=== PATIENT | male | born 1950 | race Caucasian/White ===

== ENCOUNTER 2024-03-19 06:24 | Day surgery (SDC) | payer MEDICARE ==
[~2024-03-19] VITALS: Ht 180.3 cm; Wt 64.5 kg
[2024-03-19] VITALS (8 sets, daily range): BP systolic 113–159; BP diastolic 71–91; PULSE 60–75; RESP 7–18; TEMP 98.1; O2SAT 92–98
[2024-03-19] MEDS ORDERED: MAGN400C PO (06:59)
[2024-03-19] MEDS ORDERED: LATA2.5D14 EACHEYE (06:59)
[2024-03-19] MEDS ORDERED: OXYB-58 PO (06:59)
[2024-03-19] MEDS ORDERED: FLUT15.815 NAS (06:59)
[2024-03-19] MEDS ORDERED: ATOR20TA66 PO (06:59)
[2024-03-19] MEDS ORDERED: CHOL200042 PO (06:59)
[2024-03-19] MEDS ORDERED: FLO0.4C PO (06:59)
[2024-03-19] MEDS ORDERED: BUPR1FIL56 SL (06:59)
[2024-03-19] MEDS ORDERED: LOSA50TA64 PO (06:59)
[2024-03-19] MEDS ORDERED: TRAZ-251 PO (06:59)
[2024-03-19 07:31] LABS: HEMOGLOBIN 14.4 g/dl (14.0-17.9); MEAN CORPUSCULAR HEMOGLOBIN 31.3 PG (27.0-31.0); MEAN CORPUSCULAR HGB CONC 33.8 g/dL (33.0-36.5); WHITE BLOOD COUNT 4.3 X10'3 (4.5-11.0)
[2024-03-19 07:33] LABS: BASOPHILS % (AUTO) 0.5 % (0-1); EOSINOPHILS # (AUTO) 0.1 X10'3 (0-0.9); EOSINOPHILS % (AUTO) 3.1 % (0-6); HEMATOCRIT 42.4 % (42.0-52.0); LYMPHOCYTES # (AUTO) 1.2 X10'3 (1.1-4.8); LYMPHOCYTES % (AUTO) 27.5 % (21-51); MEAN CORPUSCULAR VOLUME 92.6 FL (78-98); MEAN PLATELET VOLUME 7.5 FL (7.4-10.4); MONOCYTES # (AUTO) 0.4 X10'3 (0-0.9); MONOCYTES % (AUTO) 9.9 % (2-12); NEUTROPHILS # (AUTO) 2.5 X10'3 (1.8-7.7); PLATELET COUNT 170 X10'3 (140-440); RED BLOOD COUNT 4.58 X10'6 (4.70-6.10); RED CELL DISTRIBUTION WIDTH 13.4 % (11.5-14.5)
[2024-03-19] MEDS: normal saline 1,000 ML IV SCH (07:37)
[2024-03-19] MEDS: vancomycin/NS 1 GM in NS 250 ML IV ONE (07:38)
[2024-03-19 07:39] LABS: ALBUMIN 3.5 G/DL (3.4-5.0); ANION GAP 6 (8-16); BLOOD UREA NITROGEN 28 MG/DL (7-18); BUN/CREATININE RATIO 21.2 (10.0-20.0); CALCIUM 8.9 MG/DL (8.5-10.1); CHLORIDE 105 MMOL/L (99-107); CREATININE 1.32 MG/DL (0.60-1.10); GLUCOSE 105 MG/DL (70-104); MAGNESIUM 2.3 MG/DL (1.5-2.4); POTASSIUM 4.2 MMOL/L (3.5-5.1); PROTHROMBIN TIME 10.7 SECONDS (9.0-12.0); SODIUM 140 MMOL/L (135-145); TOTAL CARBON DIOXIDE 29.2 MMOL/L (24-32); eCRCL 44 ML/MIN; eGFR 53 ML/MIN
[2024-03-19] MEDS ORDERED: cefazolin 2gm/D5W 100mL 100 ML IV ONE (08:00)
[2024-03-19] MEDS ORDERED: LIDOcaine 1% W/epiNEPHrine 1:100,000 20ml vial ONE ×2 (08:51→09:50)
[2024-03-19] MEDS ORDERED: fentaNYL/PF 50MCG/1 ML 2ML syringe ONE ×2 (08:51→10:24)
[2024-03-19] MEDS ORDERED: midazolam 1 mg/ML 2ml injection ONE ×4 (08:51→10:25)
[2024-03-19] MEDS ORDERED: vancomycin 1,000mg inj ONE (08:53)
[2024-03-19] MEDS ORDERED: iohexol 350 MG/ML 50ML vial IV ONE (09:42)
[2024-03-19] MEDS ORDERED: normal saline 1000ml 1,000 ML IV SCH (11:35)
[2024-03-19] MEDS ORDERED: HYDROcodone/acetaminophen 5mg/325mg tablet PO PRN (11:35)
[2024-03-19] MEDS: HYDROcodone/acetaminophen 10/325mg tab PO PRN (12:19)
== END 2024-03-19 13:03 | disposition home or self-care (01) ==
LOC: SSTAY O 06:24
PROVIDERS: ATTEND Internal Medicine Cardiovascular Disease
DX: I49.5 Sick sinus syndrome (principal); I25.10 Atherosclerotic heart disease of native coronary artery without angina pectoris; E78.00 Pure hypercholesterolemia, unspecified; Z79.899 Other long term (current) drug therapy; Z98.890 Other specified postprocedural states; Z82.49 Family history of ischemic heart disease and other diseases of the circulatory system
CPT/HCPCS: 33208; 36415; 71045; 80048; 83735; 85025; 85610; 93005; 99152; 99153; A4565; C1785; C1898; J2250; J3010; J3370; J3490; J7030; Q9967; Z7610

== ENCOUNTER 2025-04-29 14:59 | Outpatient (CLI) | payer MEDICARE ==
[~2025-04-29 14:59] MED LIST: ATOR20TA66 PO; BUPR1FIL56 SL; CHOL200042 PO; FLUT15.815 NAS; LATA2.5D7 EACHEYE; LOSA50TA64 PO; MAGN400C PO; OXYB-58 PO; TAMS-55 PO; TRAZ-251 PO
--- NOTE | 2025-04-29 17:57 | RADIOLOGY REPORT ---
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 All CT scans at this facility use dose modulation, iterative reconstruction, and/o r weight based dosing when appropriate to reduce radiation dose to as low as reasonably achievable. COMPARISON: DI CHEST,SINGLE VIEW on DOS: 03/19/24 FINDINGS: LOWER NECK: Unremarkable LYMPH NODES/MEDIASTINUM: Right lower paratracheal lymph node measures 10 mm in short axis CARDIOVASCULAR: Normal cardiac size. No pericardial effusion. No aneurysmal dilatation of the great v essels. Coronary artery calcifications. UPPER ABDOMEN: Distention of the stomach. 1 mm nonobstructive left superior renal caliceal stones. Hy poattenuating lesions of the liver. In the setting of known malignancy, consider nonemergent MRI of t he liver. MUSCULOSKELETAL: No acute fracture or aggressive focal osseous lesion. Multilevel degenerative change of the visualized spine. CHEST WALL: Left anterior chest cardiac device. LUNG PARENCHYMA/PLEURAL SPACE: No pleural effusion or pneumothorax. Centrilobular emphysema in the po sterior aspect of the left upper lobe. Small areas of subpleural fibrosis and subsequent cystic lung change in the posterior basilar segment, right lower lobe. Oval-shaped pulmonary nodule measuring 10 mm in the left lower lobe with smooth margin (3-65). 6 mm pulmonary nodule in the right middle lobe w ithout suspicious morphology. IMPRESSION: 1. 10 mm pulmonary nodule in the left lower lobe without suspicious morphology. 2. 6 mm pulmonary nodule in the right middle lobe with small margin. 3. Right lower paratracheal lymph node measures 10 mm in short axis. 4. Consider further evaluation with a PET-CT or tissue sampling as deemed clinically necessary given history of malignancy.
--- NOTE | 2025-04-29 18:35 | CARDIOLOGY REPORT ---
APPROVED REPORT EXAM: Comprehensive 2D, Doppler, and color-flow Echocardiogram. Patient Location: OUT-PATIENT Blood Pressure: 142/74 mmHg Heart Rate: 63 bpm Rhythm: SINUS Indications PRE-OP SHOULDER PACEMAKER 2022 STENT X 1 (-10 YRS AGO) Irrigator Head: Kisha MORALES DO Previous echo: NONE 2D Dimensions RVDd 3.3 cm LA Diam4.5 cm LVOT Diameter 2.33 (1.8-2.4cm) M-Mode Dimensions Left Atrium(MM) 4.57 (2.5-4.0cm) IVSd 1.10 (0.7-1.1cm) LVDd 5.77 (4.0-5.6cm) Aortic Root 3.02 (2.2-3.7cm) PWd 1.04 (0.7-1.1cm) IVSs 1.69 cm LVDs 3.44 (2.0-3.8cm) FS (%) 40 % PWs 1.62 cm ESV(Teich) 48.7 ml LVEF(%) 60 (>50%) Aortic Valve AoV Peak Chris. 117.3 cm/s AoV VTI 23.2 cm AO Peak GR. 5.5 mmHg AO Mean GR. 3 mmHg LVOT VTI 21.37 cm LVOT Peak Chris. 88.4 cm/s MARIA INES (VMAX) 3.22 cm2 MARIA INES (VTI) 3.93 cm2 Mitral Valve MV E Velocity 42.5 cm/s MV DECEL TIME 186 ms MV A Velocity 94.6 cm/s MV PHT 77 ms E/A Ratio 0.4 MVA (PHT) 2.87 cm2 TDI E/Medial E' 9.8 Tricuspid Valve TR P. Velocity 238 cm/s RAP ESTIMATE 10 mmHg TR Peak Gr. 23 mmHg RVSP 33 mmHg Pulmonary Vein S2 Velocity 75.63 cm/s PVa [id number] msec LEFT VENTRICLE Borderline LV enlargement. Mild concentric hypertrophy. Wall motion is synchronous. . LVEF approximat rosina 45%. RIGHT VENTRICLE RV is normal size and function. Pacemaker wire in right heart. ATRIA Left atrium is mildly dilated. AORTIC VALVE Trileaflet AV appears minimally sclerotic without stenosis. Trace insufficiency. MITRAL VALVE Mild MV annular calcification without stenosis. Trace regurgitation. TRICUSPID VALVE TV appears structurally normal with trace regurgitation. PULMONIC VALVE Normal PV without stenosis, physiologic insufficiency. GREAT VESSELS Aortic root is normal in size. Ascending aorta is normal in size. PERICARDIUM Normal pericardium. No effusion. Other Information Study Quality: Adequate
== END 2025-04-29 23:59 | disposition home or self-care (01) ==
LOC: RAD 14:59
PROVIDERS: ATTEND Surgery Surgical Oncology
DX: I37.1 Nonrheumatic pulmonary valve insufficiency (principal); C49.9 Malignant neoplasm of connective and soft tissue, unspecified; M19.012 Primary osteoarthritis, left shoulder; Z92.3 Personal history of irradiation
CPT/HCPCS: 71250; 93306

== ENCOUNTER 2025-05-01 08:07 | Outpatient (CLI) | payer MEDICARE ==
--- NOTE | 2025-05-01 13:06 | RADIOLOGY REPORT ---
EXAM: MR MRI UPPER EXTREMITY LEFT INDICATION: MALIGNANT NEOPLASM OF CONNECTIVE AND SOFT TISSUE, UNSP TECHNIQUE: Multiplanar, multisequence MR images of the left shoulder were obtained with and without g adolinium contrast material. COMPARISON: None FINDINGS: [CORACOACROMIAL ARCH]: Mild degenerative change of the acromioclavicular joint. Intact coracoclavicul ar ligaments. Intact coracoacromial ligaments. No subacromial/subdeltoid bursal fluid. Unfused os acr omiale [ROTATOR CUFF]: Status post superior rotator cuff repair with susceptibility artifact. No definitive full-thickness rotator cuff re-tear. Question partial articular sided fraying of the undersurface of the subscapularis tendon [BICEPS TENDON]: Suspected complete disruption of the long head of the biceps tendon with likely dist al retraction. Small possible fluid distention/ganglion cysts of the long head of the biceps tendon s gely. [LABRUM]: Near full-thickness focal fissure of the posterior labrum at 09:00 [CARTILAGE]: Asymmetric anterior glenohumeral cartilage thinning [GLENOHUMERAL JOINT]: Trace glenohumeral joint effusion. Axillary pouch thickening. [BONES]: No acute fracture, osseous contusion, or aggressive focal osseous lesion. [MUSCLES]: Minimal diffuse fatty infiltration of the rotator cuff musculature [NEUROVASCULAR/LYMPH NODES]: Normal. [OTHER]: None. IMPRESSION: 1. No abnormal enhancing mass. 2. Trace glenohumeral joint fluid. 3. Complete tear of the long head of the biceps tendon off of the biceps labral anchor complex. 4. Posterior labral tear. 5. Os acromiale.
[2025-05-01] MEDS ORDERED: GADOTERATE MEGLUMINE 7.5 MMOL/15 ML VIAL IV ONE (18:23)
== END 2025-05-01 23:59 | disposition home or self-care (01) ==
LOC: MRI 08:07
PROVIDERS: ATTEND Surgery Surgical Oncology
DX: S46.112A Strain of muscle, fascia and tendon of long head of biceps, left arm, initial encounter (principal); C49.9 Malignant neoplasm of connective and soft tissue, unspecified; Z92.3 Personal history of irradiation; Q68.8 Other specified congenital musculoskeletal deformities; X58.XXXA Exposure to other specified factors, initial encounter; Y93.89 Activity, other specified; Y92.89 Other specified places as the place of occurrence of the external cause; Y99.8 Other external cause status
CPT/HCPCS: 73222; A9575